=== PATIENT | male | born 1985 | race African-American/Black ===

== ENCOUNTER 2017-11-12 02:22 | Emergency (ER) | payer SELFPAY ==
[2017-11-12] MEDS ORDERED: FAMOTIDINE 20 MG TABLET. PO (02:45)
[2017-11-12] MEDS ORDERED: diphenhydrAMINE HCL 25 MG CAPSULE PO (02:45)
[2017-11-12] MEDS ORDERED: DEXAMETHASONE SOD PHOS 20 MG/5 ML VIAL. IM (02:45)
[2017-11-12] MEDS: IV NORMAL SALINE 1000ML BAG 1,000 ML IV (03:29)
[2017-11-12 03:30] LABS: ADD MAN DIFF? NO
[2017-11-12] MEDS: DEXAMETHASONE SOD PHOS 20 MG/5 ML VIAL. IV (03:30)
[2017-11-12 03:32] LABS: BASO % 1 % (0-3); EOS # 0.1 x10^3/uL (0.0-0.7); EOS % 2 % (0-3); HEMOGLOBIN 14.2 g/dL (13.0-17.5); LYMPH # 0.7 x10^3/uL (1.0-4.8); LYMPH % 12 % (24-48); MEAN CORPUSCULAR HEMOGLOBIN 29 pg (25-35); MEAN CORPUSCULAR HGB CONC 34 g/dL (31-37); MEAN CORPUSCULAR VOLUME 86 fL (79-100); MONO # 0.8 x10^3/uL (0.0-1.1); MONO % 13 % (0-9); NEUT # 4.2 x10^3uL (1.8-7.7); NEUT % 73 % (31-73); PLATELET COUNT 162 x10^3/uL (140-400); RED BLOOD COUNT 4.89 x10^6/uL (4.30-5.70); RED CELL DISTRIBUTION WIDTH 13.6 % (11.5-14.5); WHITE BLOOD COUNT 5.8 x10^3/uL (4.0-11.0)
[2017-11-12 03:40] LABS: ANION GAP 7 (6-14); BLOOD UREA NITROGEN 24 mg/dL (8-26); BUN/CREATININE RATIO 18 (6-20); CALCIUM 9.1 mg/dL (8.5-10.1); CARBON DIOXIDE 28 mmol/L (21-32); CHLORIDE 104 mmol/L (98-107); CREATININE 1.3 mg/dL (0.7-1.3); GFR 77.9; GLUCOSE 112 mg/dL (70-99); POTASSIUM 3.8 mmol/L (3.5-5.1); SODIUM 139 mmol/L (136-145)
[2017-11-12 03:45] LABS: ALBUMIN 3.5 g/dL (3.4-5.0); ALBUMIN/GLOBULIN RATIO 1.1 (1.0-1.7); ALK PHOS 43 U/L (46-116); ALT (SGPT) 49 U/L (16-63); AST (SGOT) 29 U/L (15-37); MAGNESIUM 1.7 mg/dL (1.8-2.4); TOTAL BILIRUBIN 0.5 mg/dL (0.2-1.0); TOTAL PROTEIN 6.8 g/dL (6.4-8.2)
[2017-11-12 04:07] LABS: FECAL OB PT NEGATIVE (NEG); NEG OBC FOB NEG; POS OBC FOB POS
== END 2017-11-12 04:24 | disposition home or self-care (01) ==
LOC: ER 02:22
DX: R06.02 Shortness of breath (principal); R19.7 Diarrhea, unspecified; M54.5 Low back pain; M54.6 Pain in thoracic spine; J45.909 Unspecified asthma, uncomplicated; E66.9 Obesity, unspecified; Z68.42 Body mass index [BMI] 45.0-49.9, adult
CPT/HCPCS: 36415; 71046; 80053; 82274; 83735; 85025; 96360; 96374; 99285; J1100; J7030